=== PATIENT | male | born 1985 | race Two or more races ===

== ENCOUNTER 2021-12-01 16:20 | Emergency (ER) | payer BC ==
[~2021-12-01] VITALS: Ht 175.3 cm; Wt 81.8 kg
--- NOTE | 2021-12-01 16:56 | RAD ---
Right shoulder 3 views. HISTORY: Injury 3 views were taken of the right shoulder. There is a fracture the medial third of the right clavicle with mild angulation read there is no fracture at the shoulder. There is no glenohumeral dislocation. IMPRESSION: 1. Fracture medial right clavicle. Electronically signed by: Jaxon Wilson MD (12/01/2021 4:54 PM) [facility]
[2021-12-01] MEDS ORDERED: HYDR-2155 PO (18:13)
--- NOTE | 2021-12-01 18:17 | PHYS DOC ---
Past History Past Surgical History: No Surgical History (YARELI ARIAS APRN) Alcohol Use: None (YARELI ARIAS APRN) General Adult EDM: Chief Complaint: SHOULDER INJURY HPI: HPI: Patient is a 36-year-old male who presents to the emergency department for right clavicle pain that occurred after he fell while skiing today. He rates his pain 6 out of 10. No treatment prior to arrival. He denies any head injury or loss of consciousness. He denies any decreased range of motion or decreased sensation to his extremity. (YARELI ARIAS APRN) Review of Systems: Review of Systems: Constitutional: negative unless reported in HPI Eyes: negative unless reported in HPI HENT: negative unless reported in HPI Respiratory: negative unless reported in HPI Cardiovascular: negative unless reported in HPI GI: negative unless reported in HPI : negative unless reported in HPI Musculoskeletal: negative unless reported in HPI Integument: negative unless reported in HPI Neurologic: negative unless reported in HPI Endocrine: negative unless reported in HPI Lymphatic: negative unless reported in HPI Psychiatric: negative unless reported in HPI (YARELI ARIAS APRN) Allergies: Allergies: Allergies Coded Allergies Type Severity Reaction Last Updated Verified No Known Drug Allergies 12/01/21 No (YARELI ARIAS APRN) Physical Exam: PE: Constitutional: Well developed, well nourished, no acute distress, non-toxic appearance. [] HENT: Normocephalic, atraumatic, bilateral external ears normal, oropharynx moist, no oral exudates, nose normal. [] Eyes: PERRL, EOMI, conjunctiva normal, no discharge. [] Neck: Normal range of motion, no tenderness, supple, no stridor. [] Cardiovascular:Heart rate regular rhythm, no murmur [] Lungs & Thorax: Bilateral breath sounds clear to auscultation [] Abdomen: Bowel sounds normal, soft, no tenderness, no masses, no pulsatile masses. [] Skin: Warm, dry, no erythema, no rash. [] Back: No tenderness, no CVA tenderness. [] Extremities: No tenderness, no cyanosis, no clubbing, ROM intact, no edema. Obvious deformity to right clavicle, range of motion intact, neuro intact, no skin tenting, no open wounds Neurologic: Alert and oriented X 3, normal motor function, normal sensory function, no focal deficits noted. [] Psychologic: Affect normal, judgement normal, mood normal. [] (YARELI ARIAS APRN) Current Patient Data: Vital Signs: Vital Signs Date Time Temp Pulse Resp B/P (MAP) Pulse Ox O2 Delivery O2 Flow Rate FiO2 12/01/21 17:53 98.9 68 18 121/74 (90) 100 Room Air (YARELI ARIAS APRN) EKG: EKG: [] (YARELI ARIAS APRN) Radiology/Procedures: Radiology/Procedures: []PROCEDURE: SHOULDER 2+V RIGHT Right shoulder 3 views. HISTORY: Injury 3 views were taken of the right shoulder. There is a fracture the medial third of the right clavicle with mild angulation read there is no fracture at the shoulder. There is no glenohumeral dislocation. IMPRESSION: 1. Fracture medial right clavicle. Electronically signed by: Jaxon Wilson MD (12/01/2021 4:54 PM) [facility] DICTATED AND SIGNED BY: JAXON WILSON MD DATE: 12/01/211652 CC: JUSTIN RIOS DO; EMERGENCY,DEPARTMENT; PCP,NO ~MTH0 0 (YARELI ARIAS APRN) Heart Score: C/O Chest Pain: N/A Risk Factors: Risk Factors: DM, Current or recent (<one month) smoker, HTN, HLP, family history of CAD, obesity. Risk Scores: Score 0 - 3: 2.5% MACE over next 6 weeks - Discharge Home Score 4 - 6: 20.3% MACE over next 6 weeks - Admit for Clinical Observation Score 7 - 10: 72.7% MACE over next 6 weeks - Early Invasive Strategies (YARELI ARIAS APRN) Course & Med Decision Making: Course & Med Decision Making Pertinent Labs and Imaging studies reviewed. (See chart for details) [] Patient presents to the emergency department for right clavicular pain after falling on it while skiing today. An x-ray was performed that does show a right clavicle fracture. Patient's pain was treated in the emergency department and he was placed in a shoulder immobilizer. He is neurovascularly intact. Patient will be discharged home with pain medication. He will be given referral information for orthopedic doctor. I discussed with patient all findings and diagnostic testing as well as the need to follow-up with PCP for further evaluation and treatment or return to the ER if any new or worsening symptoms. Strict return precautions were also discussed at length. Patient voiced understanding and agreement with the plan. Patient is hemodynamically stable at the time of disposition. (YARELI ARIAS APRN) Dragon Disclaimer: Dragon Disclaimer: This electronic medical record was generated, in whole or in part, using a voice recognition dictation system. (YARELI ARIAS LANDSCAPE NURSERYMAN) Departure Departure: Impression: Primary Impression: Clavicle fracture Qualified Codes: S42.001A - Fracture of unspecified part of right clavicle, initial encounter for closed fracture Disposition: HOME / SELF CARE / HOMELESS Condition: GOOD Referrals: PCP,JASSI (PCP) RAFAEL STARK II, MD Patient Instructions: Clavicle Fracture Additional Instructions: You are seen in the emergency department today for a clavicle injury after falling. X-ray does show a clavicle fracture. You are placed in a shoulder immobilizer to help with stabilization and comfort. You are being discharged home with pain medication. This medication is hydrocodone and Tylenol in combination tablet. Do not take any additional Tylenol with this medication. This medication may cause sedation do not take he needs to be alert, driving a vehicle or with alcohol. For mild pain you can take ibuprofen or naproxen. You will need to follow-up with an orthopedic doctor soon as possible. A name for an orthopedic doctor at [facility] was attached to your discharge papers, please call them on Friday to set up a follow-up appointment. You can also apply ice for comfort. Return to the emergency department if you develop worsening of your pain, increased swelling, decreased sensation in your extremity or decreased range of motion. Scripts Hydrocodone Bit/Acetaminophen (HYDROCODONE-APAP 5-325 ) 1 Each Tablet 1 TAB PO PRN Q6HRS PRN for PAIN for 2 Days, #8 TAB 0 Refills Prov: YARELI ARIAS LANDSCAPE NURSERYMAN 12/01/21 Attending Signature Attending Signature I have participated in the care of this patient and I have reviewed and agree with all pertinent clinical information above including history, exam, and recommendations. (LORI IRELAND MD) Dragon Disclaimer This chart was dictated in whole or in part using Voice Recognition software in a busy, high-work load, and often noisy Emergency Department environment. It may contain unintended and wholly unrecognized errors or omissions. (LORI IRELAND MD) YARELI ARIAS APRN Dec 01, 2021 18:17 LORI IRELAND MD Dec 03, 2021 02:41
[2021-12-01] MEDS ORDERED: HYDROcodone/APAP 5/325MG 1 TAB TABLET PO ONE (18:30)
[2021-12-01 18:46] VITALS: BP 133/82
== END 2021-12-01 18:46 | disposition home or self-care (01) ==
LOC: ER 16:20
DX: S42.011A Anterior displaced fracture of sternal end of right clavicle, initial encounter for closed fracture (principal); V00.328A Other snow-ski accident, initial encounter; Y93.23 Activity, snow (alpine) (downhill) skiing, snowboarding, sledding, tobogganing and snow tubing; Y92.89 Other specified places as the place of occurrence of the external cause; Y99.8 Other external cause status
CPT/HCPCS: 29105; 73030; 99283